=== PATIENT | female | born 1995 | race Caucasian/White ===

== ENCOUNTER → 2018-01-29 14:42 | Outpatient (CLI) | payer SELFPAY ==
[2018-02-03 16:21] LABS: HPV Reflexed? NOT INDICATED
== END ==
PROVIDERS: Visit Provider Obstetrics & Gynecology
DX: Z12.4 Encounter for screening for malignant neoplasm of cervix (principal)
CPT/HCPCS: 88175; G0145

== ENCOUNTER 2019-05-13 05:57 | Day surgery (SDC) | payer SELFPAY ==
--- NOTE | 2019-05-12 17:12 | PCM.HP.BLA ---
History and Physical Date of Admission: 05/13/19 Surgical History and Physical HISTORY OF PRESENT ILLNESS: On 05/12/2019, Cheryle Balderas, a 23 year old female 0 0 1 0 0, presented for: -- Inevitable Miscarriage -- Cheryle is being seen for follow up appt. LUIS DANIEL Cabrera is with pt today for visit. She has been seeing a manufacturing development engineer, Jailene Mayer for . She also went to [facility] in [place] for Ultrasounds. She started with bleeding on Friday05-07-19. Bleeding has increased and she is having clots. US done today to check for nonviable and is confirmed. The manufacturing development engineer did have pt taking progesterone during . Medications and allergies are up to date. ALLERGIES: No Known Drug Allergies MEDICATIONS HISTORY: Patient is also takin. progesterone micronized 200 mg capsule, tid REVIEW OF SYSTEMS: GENERAL - Denies fever, or chills SKIN - Denies skin changes EYES - Denies visual changes EARS - Denies difficulty hearing NOSE - Denies nasal congestion or bleeding MOUTH - Denies sore throat or difficulty swallowing NECK - Denies pain or swelling RESPIRATORY - Denies shortness of breath or wheezing CARDIOVASCULAR - Denies palpitations or chest pain GASTROINTESTINAL - Denies nausea, vomiting, diarrhea, constipation GENITOURINARY - Denies dysuria, frequency of urination, incontinence of urine MUSCULOSKELETAL - Denies joint or muscle pain NEUROLOGICAL - Denies localized numbness or weakness PSYCHIATRIC - Denies depression or anxiety ENDOCRINE - Denies heat or cold intolerance, weight loss or gain HEMATO-IMMUNOLOGIC - Denies excesive bleeding with cuts PAST HISTORY: Infections - Chicken pox Illnesses - none and no serious past illnesses Accidents - None Hospitalizations - None MENSTRUAL HISTORY: LMP Known?- DefiniteAmount/Duration - 6-7 DAYS, Regularity - regular, LMP - 02/13/19, Age Onset Menarche - 10 PAST PREGNANCIES: Total Pregnancies - 1; Full Term Pregnancies - 0; Premature - 0; Abortions, Induced - 0; Abortions, Spontaneous - 1; Ectopics - 0; Multiple Births - 0; Living Children - 0 FAMILY HISTORY: Mother - Diabetes mellitus; SOCIAL HISTORY: Alcohol Use - denies drinking Smoking - denies smoking Diet - balanced Diet Lifestyle - low stress lifestyle Exercise - minimal Seat Belt Use - always Employer - [employer] Illicit Drug Use - denies use of street drugs Sexual Activity - [employer]IVE [employer] Residence - lives with Hours Worked - less than 40 Spouse-Sig Other Name - Cabrera Spouse-Sig Other Occupation - Consulted Control - None-attempting pregancy PHYSICAL EXAMINATION BP- 102/90 Sitting, Right arm, regular cuff Weight- 142.00 lbs Height- 63.09 inch BMI:25.13 CONSTITUTIONAL - NAD, well nourished, and well developed SKIN - No rash, lesions, or ulcers HEENT - Normocephalic, PERRLA, EOMI NECK - No nodes, no nuchal rigidity and thyroid normal size and texture LYMPH NODES - Palpation of lymph nodes in neck and groins within normal limits LUNGS - CTA x2 without wheezes, crackles or rales CARDIAC - Regular rate and rhythm without rubs, murmurs, or gallops ABDOMEN - Without hepatosplenomegaly, distention, masses, rebound, or guarding; normal bowel sounds; no hernias EXTREMITIES - No edema or calf tenderness NEUROLOGICAL - Cranial nerves II-XII grossly intact PSYCHIATRIC - A and O to time, place, person, mood and affect ASSESSMENT: 1. Spontaneous , Incomplete, Without Mention Of Complication PLAN BY DIAGNOSIS: 1. Spontaneous , Incomplete, Without Mention Of Complication 8+ week IUP without FHTs. Discussed options for treatment including expectant management vs proceeding with Suction D and E and pt desires proceeding with the surgery. Discussed RBAs and all questions answered.
[2019-05-12 17:21] LABS: Hematocrit 37.8 % (37-47); Hemoglobin 12.8 g/dL (12.0-15.0); Mean Corp Hgb Conc 33.9 g/dL (32-36); Mean Corpuscular Volume 88.5 fL (81-99); Mean Platelet Vol. 9.7 fl (6.2-12.0); Platelet Count 243 K/mm3 (150-450); RBC Distribution Width CV 12.4 % (11.6-14.6); Red Blood Count 4.27 M/mm3 (4.2-5.4)
[2019-05-12 17:27] LABS: Prothrombin Time (Protime)PT. 13.2 SECONDS (11.7-14.9)
[2019-05-12 17:28] LABS: Partial Thromboplast Time 32.4 Seconds (24.1-36.2)
[2019-05-13] VITALS (7 sets, daily range): BP systolic 97–117; BP diastolic 61–67; PULSE 70–80; RESP 15–18; TEMP 36.2–36.9; O2SAT 98–100; BMI 25.0
--- NOTE | 2019-05-13 07:30 | POC_PTH ---
PATIENT: REJI BENITEZ LOC: [facility] [place] U#:[id number] AGE/SX: 23/F ROOM: RE05/13/[address]: Dr. Jarred Del Cid MD : [id number] BED: DIS: 05/13/2019 SPEC #: [id number] RECD: 05/13/19 08:19 STATUS: SUSAN CORRINA #: [id number] SHEELA: 05/13/19 07:[address]: Jarred Del Cid DEPT: SURGICAL PATHOLOGY RECD BY: Jun Jhaveri ENTERED: 05/13/19 09:39 SP TYPE: PROD CONC OTHR DR: Hannah Patrick, CHILD LIFE ASSISTANT-C Tissues: Product of conception, NOS Procedures: Surgery Specimen Level IV HEADER OPERATION: Dilation and curettage, suction PRE-OP DIAGNOSIS: Spontaneous , incomplete TISSUE SUBMITTED: Products of conception MICROSCOPIC DIAGNOSIS Endometrium, curettage: Hypersecretory endometrium and decidualized tissue. See comment. AM:grisel 05/14/19 COMMENT Chorionic villi are not identified. Clinical correlation is suggested. MICROSCOPIC DESCRIPTION Slides are reviewed. GROSS DESCRIPTION Received in fixative is one container labeled with the patient's name and designated products of conception. The specimen consists of multiple irregular fragments of red-liu soft tissue that in aggregate measure 7 x 6 x 0.5 cm. parts are not grossly recognized. The specimen is totally submitted in three cassettes. / AM:grisel 05/13/19 TC:5 CPT: 95505
--- NOTE | 2019-05-13 07:30 | PCM.OPRPT ---
Report of Operation Date of Procedure: 05/13/19 Pre-Operative Diagnosis: Inevitable Miscarriage Post-Operative Diagnosis: Inevitable Miscarriage Surgery/Procedure Performed:: Suction Dilation and Evacuation Description of Surgical Findings:: 8 cm endometrial cavity with minimal products of conception present. Type of Anesthesia:: MAC Anesthesiologist: Alexander Painting Estimated Blood Loss (mL): Minimal Fluids Replaced: Crystal Description of Procedure: Surgeon: Jarred Del Cid MD, FACOG Indication: 23 Year patient with incomplete AB at 11 weeks gestation with a 9 week IUP without FHTs. Pt has been counseled re RBAs and all questions answered. Procedure: Pt taken to the OR where she was given IV sedation. The patient was prepped and draped in the usual sterile fashion. Anterior cervix grasped and cervix dilated to 10mm. An 9 mm suction curette was inserted into the cervix and all contents removed. Uterus was gently curetted and remaining tissue removed. Pt tolerated the procedure well and was taken to the recovery room in satisfactory condition. Sponge, instruments and needle counts were all correct. There were no apparent complications of the surgery. To Pathology: POC EBL Minimal. Grafts/Implants Used: None - Complications None - Admit VTE Documentation VTE Present on Admission: Yes VTE Mechan Device Prophylaxis: SCD's VTE Pharm Prophylaxis ordered?: No Reason prophylaxis not ordered:: Treatment Not Indicated
--- NOTE | 2019-05-13 07:33 | DCINST_ITS ---
Discharge Diet: No Restrictions Discharge Activity: Return to Normal Activity, May Shower, May Take a Tub Bath May resume sexual activity in: 1-2 weeks Call your doctor if you observe: Fever of 101 or Higher, Inability to urinate, Inability to have a bowel movement, Using more than one pad per hour Allergies/Adverse Reactions: Allergies No Known Allergies Allergy (Verified 05/13/19 06:30) Primary Care Physician: Hannah Patrick NP-C [Primary Care Provider] - Test Results: Test results from this visit will be discussed in further detail at your follow- up appointment, if applicable. Please Follow Up With: Jarred Del Cid MD When: 2 to 3 weeks
[2019-05-13] MEDS: Lubricating Jelly 60 GM Tube 30 GM TOPICAL (07:40)
== END 2019-05-13 09:08 | disposition home or self-care (01) ==
LOC: SDC 05:58 → AC 06:00
PROVIDERS: Family Provider Nurse Practitioner Family; PCP Nurse Practitioner Family; Referring Provider Obstetrics & Gynecology; Visit Provider Obstetrics & Gynecology
PROC: (CPT 59812; principal; 2019-05-13 07:15)
DX: O03.4 Incomplete spontaneous abortion without complication (principal)
CPT/HCPCS: 01965; 59812; 36415; 85027; 85610; 85730; 86850; 86900; 88305; J7120